=== PATIENT | female | born 1990 | race Caucasian/White ===

== ENCOUNTER 2018-09-19 05:18 | Emergency (ER) | payer MEDICAID ==
[~2018-09-19] VITALS: Ht 175.3 cm; Wt 97.7 kg
[~2018-09-19 05:18] MED LIST: AFRIN NS; ANTI14DR2 EACH EAR; HYDR1TAB PO; NO HOME MEDS; PROM25TA14 PO; VALP250C44 PO
[2018-09-19] MEDS ORDERED: BUPIVAcaine/PF 2.5 mg/ml (0.25%) 30ml vial IJ ONE (06:30)
[2018-09-19] MEDS ORDERED: BUPIVAcaine/PF 2.5mg/ml (0.25%) 10ml vial IJ ONE (06:35)
[2018-09-19 06:40] VITALS: BP 129/80
[2018-09-19] MEDS ORDERED: AMOX-101 PO (07:27)
== END 2018-09-19 07:39 | disposition home or self-care (01) ==
LOC: ER 05:18
DX: K08.89 Other specified disorders of teeth and supporting structures (principal); K02.9 Dental caries, unspecified; Z56.0 Unemployment, unspecified; Z98.890 Other specified postprocedural states; Z85.841 Personal history of malignant neoplasm of brain; Z88.8 Allergy status to other drugs, medicaments and biological substances; Z79.899 Other long term (current) drug therapy
CPT/HCPCS: 64400; 99284; J3490